=== PATIENT | male | born 1980 | race Hispanic/Latino ===

== ENCOUNTER 2020-05-08 20:05 | Inpatient (IN) | payer SELFPAY ==
[2020-05-08] MEDS ORDERED: Lorazepam 2 MG/ML VIAL ONE (23:01)
[2020-05-08] MEDS ORDERED: Ketorolac Tromethamine 30 MG/ML VIAL ONE (23:01)
[2020-05-08] MEDS ORDERED: Fentanyl 100 MCG/2 ML VIAL ONE (23:01)
[2020-05-08] MEDS ORDERED: Boostrix 0.5 ML (Tdap) VIAL ONE (23:01)
[2020-05-08 23:03] LABS: #Basophils 0.1 thou/uL (0.0-0.2); #Lymphocytes 1.1 thou/uL (1.20-3.40); #Monocytes 0.5 thou/uL (0.11-0.59); #Neutrophils 10.1 thou/uL (1.40-6.50); %Basophils 0.5 % (0.0-1.0); %Eosinophils 0.2 % (0.0-10.0); %Lymphocytes 9.4 % (21.0-51.0); %Monocytes 4.5 % (0.0-10.0); %Neutrophils 85.5 % (42.0-75.0); Hemoglobin 15.9 g/dL (14.0-18.0); Mean Corpuscular HGB CONC 34.6 g/dL (32.0-36.0); Mean Corpuscular Hemoglobin 34.4 pg (27.0-31.0); Mean Corpuscular Volume 99.6 fL (78.0-98.0); Mean Platelet Volume 8.3 fL (7.4-10.4); Platelet Count 193 thou/uL (130-400); RBC Distribution Width 11.9 % (11.5-14.5); Red Blood Cell (RBC) Count 4.62 mill/uL (4.70-6.10); White Blood Cell (WBC) Count 11.9 thou/uL (4.8-10.8)
[2020-05-08 23:09] LABS: INR-International Normal Ratio 0.9; PTT 26.2 sec (22.9-36.1); Prothrombin Time 12.5 sec (12.0-14.7)
[2020-05-08 23:23] LABS: ALT (SGPT) 79 U/L (8-55); AST (SGOT) 48 U/L (5-34); Albumin 4.5 g/dL (3.5-5.0); Alkaline Phosphatase 86 U/L (40-110); Anion Gap 15 mmol/L (10-20); BUN (Urea Nitrogen) 10 mg/dL (8.9-20.6); Bilirubin, Total 0.6 mg/dL (0.2-1.2); Calc. Creatinine Clearance 0 mL/min (70-130); Calcium 9.5 mg/dL (7.8-10.44); Carbon Dioxide 24 mmol/L (22-29); Chloride 99 mmol/L (98-107); Globulin 3.3 g/dL (2.4-3.5); Glucose 108 mg/dL (70-105); Potassium 4.4 mmol/L (3.5-5.1); Protein, Total 7.8 g/dL (6.0-8.3); Sodium 134 mmol/L (136-145)
[2020-05-09] MEDS ORDERED: Ondansetron PF 4 MG/2 ML Vial IVP PRN (00:31)
[2020-05-09] MEDS ORDERED: Dextrose 50% Abboject 50 ML SYRINGE SLOW IVP PRN (00:31)
[2020-05-09] MEDS ORDERED: Dextrose 5% in Water 1,000 ML IV PRN (00:31)
[2020-05-09] MEDS ORDERED: Ondansetron ODT 4 MG TAB PO PRN (00:31)
[2020-05-09] MEDS ORDERED: hydrALAZINE 20 MG/ML VIAL SLOW IVP PRN (00:31)
[2020-05-09] MEDS ORDERED: Cyclobenzaprine 10 MG TAB PO PRN (00:34)
[2020-05-09] MEDS ORDERED: traMADol HCl 50 MG TAB PO PRN (00:34)
[2020-05-09] MEDS ORDERED: Morphine 2 MG/ML VIAL ONE ×2 (02:17→10:04)
[2020-05-09] MEDS: Morphine 2 MG/ML VIAL SLOW IVP PRN ×2 (02:21→10:07)
[2020-05-09] MEDS: Sodium Chloride 0.9% 1,000 ML IV SCH ×3 (02:23→17:58)
[2020-05-09 05:36] LABS: SARS-CoV-2 PCR by NAA Not Detected (NotDetected)
[2020-05-09] MEDS ORDERED: Acetaminophen 325 MG TAB ONE (07:24)
[2020-05-09] MEDS ORDERED: Ketorolac Tromethamine 30 MG/ML VIAL ONE ×2 (07:24→16:52)
[2020-05-09] MEDS: Acetaminophen 325 MG TAB PO SCH ×3 (07:29→17:59)
[2020-05-09] MEDS: Ketorolac Tromethamine 30 MG/ML VIAL IVP SCH ×4 (07:33→23:53)
[2020-05-09] MEDS ORDERED: CEFAZOLIN 2 GM in Premix Bag 1 BAG IVPB SCH (07:45)
[2020-05-09] MEDS: Senokot S 8.6-50 MG TAB PO SCH ×2 (08:38→20:19)
[2020-05-09] MEDS: Polyethylene Glycol 3350 17 GM Packet PO SCH (08:38)
[2020-05-09] MEDS: Famotidine 20 MG TAB PO SCH ×3 (09:06→20:18)
[2020-05-09] MEDS ORDERED: Famotidine 20 MG TAB ONE (09:11)
[2020-05-09 11:49] VITALS: BMI 23.6
[2020-05-09] MEDS ORDERED: Fentanyl 100 MCG/2 ML VIAL ONE ×3 (13:14→17:20)
[2020-05-09] MEDS ORDERED: Midazolam HCl 2 mg/2 ml Vial ONE ×2 (13:14→14:53)
[2020-05-09] MEDS ORDERED: Dexamethasone 20 MG/5 ML VIAL ONE (13:25)
[2020-05-09] MEDS ORDERED: Ondansetron PF 4 MG/2 ML Vial ONE (13:25)
[2020-05-09] MEDS ORDERED: Lidocaine 1% PF 5 ML VIAL ONE (13:25)
[2020-05-09] MEDS ORDERED: PROPOFOL 200 MG/20 ML VIAL ONE (13:25)
[2020-05-09] MEDS ORDERED: Bupivacaine HCl 0.5%/Epinephrine 1:200,000/PF 30 ml Vial ONE (13:25)
[2020-05-09] MEDS: CEFAZOLIN 2 GM in Premix Bag 1 BAG IVPB SCH (23:53)
[2020-05-10] MEDS: Acetaminophen 325 MG TAB PO SCH ×3 (00:53→13:14)
[2020-05-10] MEDS: Sodium Chloride 0.9% 1,000 ML IV SCH ×2 (04:32→09:06)
[2020-05-10] MEDS: Ketorolac Tromethamine 30 MG/ML VIAL IVP SCH ×2 (06:22→13:15)
[2020-05-10] MEDS ORDERED: FLU VACC QS2020-21(6MOS UP)/PF 60 MCG/0.5 ML SYRINGE IM ONE (09:00)
[2020-05-10] MEDS: CEFAZOLIN 2 GM in Premix Bag 1 BAG IVPB SCH ×2 (09:02→15:53)
[2020-05-10] MEDS: Senokot S 8.6-50 MG TAB PO SCH (09:03)
[2020-05-10] MEDS: Famotidine 20 MG TAB PO SCH (09:03)
[2020-05-10] MEDS: traMADol HCl 50 MG TAB PO PRN ×3 (09:04→16:18)
[2020-05-10] MEDS: Polyethylene Glycol 3350 17 GM Packet PO SCH (09:05)
[2020-05-10 15:50] VITALS: BP 108/66; TEMP 97.6
[2020-05-10] MEDS ORDERED: Ibuprofen 600 MG TAB PO PRN (18:00)
== END 2020-05-10 16:48 | disposition home or self-care (01) | DRG 494 ==
LOC: ERS 20:05 → SURG A 22:45 → ERHOLD 23:46 → SURG A 05-09 12:02
PROVIDERS: ADMIT Surgery; ATTEND Surgery
PROC: 0QSK04Z Reposition Left Fibula with Internal Fixation Device, Open Approach (ICD-10-PCS; principal; 2020-05-09)
DX: S82.852A Displaced trimalleolar fracture of left lower leg, initial encounter for closed fracture (principal); Z20.822 Contact with and (suspected) exposure to COVID-19; F17.210 Nicotine dependence, cigarettes, uncomplicated; W19.XXXA Unspecified fall, initial encounter
CPT/HCPCS: 29515; 36415; 71045; 76000; 80053; 85025; 85610; 85730; 87635; 90471; 90715; 93005; 96374; 96375; C1713; J0690; J1100; J1885; J2060; J2250; J2270; J2405; J2704; J3010; U0003; U0005

== ENCOUNTER 2020-12-20 19:00 | Outpatient (CLI) | payer OTHER | END 2020-12-20 19:01 | disposition home or self-care (01) | LOC: SLEEPLAB 19:00 | PROVIDERS: ATTEND Nurse Practitioner Family | DX: G47.33 Obstructive sleep apnea (adult) (pediatric) (principal); R06.83 Snoring; E66.9 Obesity, unspecified; Z68.33 Body mass index [BMI] 33.0-33.9, adult | CPT/HCPCS: 95811 ==